=== PATIENT | male | born 1965 | race Caucasian/White ===

== ENCOUNTER 2018-08-22 06:32 | Day surgery (SDC) | payer BC ==
[~2018-08-22 06:32] MED LIST: ALPRAZolam 0.25 MG TAB PO PRN; ALPRAZolam 0.5 MG TAB PO PRN; ASPIRIN 325 MG TAB PO STA; ATORVASTATIN 80 MG TAB PO STA; NITROGLYCERIN SL TABS 0.4 MG TAB SUBLINGUAL PRN; SODIUM CHLORIDE 0.9% 1,000 ML in EMPTY BAG 1 BAG IV ONE
[2018-08-22] MEDS ORDERED: fentaNYL (PF) 50 MCG/ML 2 ML AMP ONE (07:22)
[2018-08-22] MEDS ORDERED: LIDOCAINE 1% INJ 10MG/ML (20 ML MDV) ONE (07:22)
[2018-08-22] MEDS ORDERED: IV FLUID CONTINUATION 1,000 ML IV ONE (07:37)
[2018-08-22] MEDS: MIDAZOLAM 2 MG/2 ML VIAL IVP ONE ×2 (07:47→07:52)
[2018-08-22] MEDS ORDERED: fentaNYL (PF) 50 MCG/ML 2 ML AMP IVP ONE (07:47)
[2018-08-22] MEDS ORDERED: BIVALIRUDIN BOLUS 250 MG/50 ML IV ONE (08:16)
[2018-08-22] MEDS ORDERED: BIVALIRUDIN 250 MG in SODIUM CHLORIDE 0.9% 32 ML IV ONE (08:16)
[2018-08-22] MEDS ORDERED: MIDAZOLAM 2 MG/2 ML VIAL IVP ONE (08:16)
[2018-08-22] MEDS ORDERED: CLOPIDOGREL 75 MG TAB ONE ×2 (08:18)
[2018-08-22] MEDS: NITROGLYCERIN 1000MCG/10ML SYRINGE INTRACORON ONE ×2 (08:18→08:24)
[2018-08-22] MEDS ORDERED: CLOPIDOGREL 75 MG TAB PO ONE (08:23)
[2018-08-22] MEDS ORDERED: IOPAMIDOL-370 125ML BTL INJ ONE (08:27)
[2018-08-22] MEDS ORDERED: NITROGLYCERIN SL TABS 0.4 MG TAB SUBLINGUAL PRN ×2 (08:30→08:31)
[2018-08-22] MEDS ORDERED: ZOLPIDEM 5 MG TAB PO PRN (08:31)
[2018-08-22] MEDS ORDERED: ATROPINE SULFATE 0.1 MG/ML 10ML SYRINGE IV PRN (08:31)
[2018-08-22] MEDS ORDERED: MAG HYDROX/AL HYDROX/SIMETH 30 ML CUP PO PRN (08:31)
[2018-08-22] MEDS ORDERED: RX INFO: IV CONTRAST WAS GIVEN 1 EACH MISC MISCELLANE PRN (08:31)
[2018-08-22] MEDS ORDERED: SODIUM CHLORIDE 0.9% 1,000 ML IV SCH (08:45)
--- NOTE | 2018-08-22 09:03 | PTCA ---
PERCUTANEOUSTRANS CORORONARY ANGIOGRAPHY DATE OF SERVICE: 08/22/2018 PERFORMING PHYSICIAN: Eladio Wolf MD, Congressional Representative. PROCEDURE PERFORMED: Successful stenting of the mid RCA using 3.5 x 15 mm Xience drug-eluting stent with an excellent angiographic results. INDICATION: This is a pleasant 52-year-old gentleman who sees Dr. Villalta in the office as an outpatient with known history of coronary artery disease who underwent stenting of the LAD in the past, was experiencing chest discomfort concerning for angina. He underwent heart catheterization earlier today by Dr. Villalta and was found to have severe disease involving the mid RCA with patent stent in the LAD. Because of that, stenting of the RCA was advised. APPROACH: Right common femoral artery. COMPLICATION: None. LEVEL OF SEDATION: Moderate with sedation length of 12 minutes. PROCEDURE DESCRIPTION: After diagnostic heart catheterization was performed by Dr. Villalta and after reviewing the angiogram, we decided to pursue with an intervention on the right coronary artery. Anticoagulation was initiated using Angiomax. Subsequently, I did engage the right coronary artery using JR4 guide. A run-through wire was used to wire the right coronary artery. Subsequently, I did direct stenting of the lesion using 3.5 x 15 mm Xience drug-eluting stent where the stent was positioned under fluoroscopy guidance and deployed under 18 atmospheres for 20 seconds. The following angiogram showed good angiographic results and the procedure was completed without any complication. POSTPROCEDURE MANAGEMENT: 1. Dual anti-platelet therapy. 2. Risk factors modifications. 3. Follow up with the patient. MMODL / IJN: [id number] /
--- NOTE | 2018-08-22 09:03 | CC ---
CARDIAC CATHETERIZATION REPORT CARDIAC CATHETERIZATION: INDICATION: Unstable angina. PROCEDURE NOTE: After obtaining informed consent, left heart catheterization, coronary angiogram are performed via the right femoral artery using standard Morgan catheters. Patient tolerated the procedure well without any obvious immediate complications. Patient was given moderate conscious sedation and total sedation time was 15 minutes. FINDINGS: HEMODYNAMICS: Left ventricular end-diastolic pressure is 10 to 12 mm. There is no significant gradient across aortic valve. LEFT VENTRICULOGRAM: Left ventriculogram is not performed. ANGIOGRAPHIC DATA: LEFT MAIN CORONARY ARTERY: Left main coronary artery is a normal-sized vessel and is free of stenosis. Divides into left anterior descending coronary artery and a small nondominant circumflex coronary artery. The previously stented segment within the LAD appears patent. RIGHT CORONARY ARTERY: A large dominant vessel, shows a focal area of 70% stenosis in the mid RCA and there is also a mild atherosclerotic plaque in the proximal part. CONCLUSION: Patent stent within the LAD, 70% stenosis involving mid RCA. PLAN: Patient will undergo angioplasty with stent placement of right coronary artery. The patient had been explained of risks, benefits and alternatives for management. He understands and is in agreement with the plans. MMODL / IJN: [id number] /
--- NOTE | 2018-08-22 09:18 | LTR ---
August 22, 2018 Re: Geovany Sims Dear Dr. Dennis: Mr. Geovany Sims underwent a heart catheterization earlier today by Dr. Villalta and was found to have severe disease involving the mid RCA. He underwent successful stenting of the RCA with good angiographic results and without any complication. Thank you for allowing us to participate in his care and please do not hesitate to call if you have any question or concern. Sincerely, MD BEA Briseno / LACI: [id number] /
[2018-08-22] MEDS: METOPROLOL TARTRATE 25 MG TAB PO SCH ×2 (12:01→20:22)
[2018-08-22] MEDS: ASPIRIN 325 MG TAB PO SCH (12:45)
[2018-08-22 14:57] VITALS: BMI 36.0
[2018-08-22] MEDS ORDERED: ATORVASTATIN 10 MG TAB PO SCH (21:00)
[2018-08-22 21:06] VITALS: RESP 18
[2018-08-23 07:28] LABS: Anion Gap 7 mmol/L; Blood Urea Nitrogen 11 mg/dL (9-20); Calcium 9.3 mg/dL (8.4-10.2); Carbon Dioxide 23 mmol/L (22-30); Chloride 109 mmol/L (98-107); Glucose 99 mg/dL (74-99); Potassium 4.5 mmol/L (3.5-5.1); Sodium 139 mmol/L (137-145)
[2018-08-23 07:37] LABS: Basophils # (A) 0.1 k/uL (0-0.2); Basophils % (A) 1 %; Eosinophils # (A) 0.2 k/uL (0-0.7); Eosinophils % (A) 2 %; HCT 49.6 % (39.0-53.0); Lymphocytes # (A) 1.1 k/uL (1.0-4.8); Lymphocytes % (A) 13 %; MCH 28.5 pg (25.0-35.0); MCHC 32.2 g/dL (31.0-37.0); MCV 88.4 fL (80.0-100.0); Mean Platelet Volume 7.2; Monocytes # (A) 0.5 k/uL (0-1.0); Monocytes % (A) 6 %; Neutrophils # (A) 6.6 k/uL (1.3-7.7); Neutrophils % (A) 78 %; Platelet Count 195 k/uL (150-450); RBC 5.61 m/uL (4.30-5.90); WBC 8.5 k/uL (3.8-10.6)
[2018-08-23] MEDS: ASPIRIN 325 MG TAB PO SCH (07:46)
[2018-08-23] MEDS: METOPROLOL TARTRATE 25 MG TAB PO SCH (07:46)
[2018-08-23] MEDS ORDERED: CLOPIDOGREL 75 MG TAB PO SCH (09:00)
[2018-08-23 12:26] VITALS: BP 119/81; PULSE 64; TEMP 97.7
--- NOTE | 2018-08-23 14:10 | DS ---
DISCHARGE SUMMARY DATE OF ADMISSION: 08/22/2018. DATE OF DISCHARGE: 08/23/2018. DIAGNOSIS: Unstable angina. PROCEDURES PERFORMED: Coronary angiography and PTCA and stenting of right coronary artery. Mr. Sims was admitted for elective cardiac cath by Dr. Villalta. Cardiac cath revealed that he had a significant lesion in the right coronary artery, about a 70% stenosis in the mid RCA. Previously stented LAD was patent. The circumflex was small and nondominant. He underwent stenting of mid RCA with a drug-eluting stent by Dr. Soliz uneventfully. Postprocedure course was uneventful. This morning, EKG and labs are good. His right groin is clean and dry with a good pulse. Patient has been ambulating in the hallways without symptoms. Patient had a 3.5 caliber 15 mm long drug-eluting stent. The patient is ambulating the cain without symptoms. Plan is discharge him home and he will see Dr. Villalta in one week. Discharge instructions regarding activity, diet and medications were given. MMODL / IJN: [id number] /
[2018-08-23] MEDS ORDERED: ATORVASTATIN 40 MG TAB PO SCH (21:00)
== END 2018-08-23 12:19 | disposition home or self-care (01) ==
LOC: CATHCVL 06:32 → 3SCARD 08:33 → CATHCVL 08-23 12:19
PROVIDERS: ATTEND Internal Medicine Cardiovascular Disease
DX: I25.110 Atherosclerotic heart disease of native coronary artery with unstable angina pectoris (principal); I10 Essential (primary) hypertension; Z72.0 Tobacco use; Z95.5 Presence of coronary angioplasty implant and graft; E78.2 Mixed hyperlipidemia; E78.00 Pure hypercholesterolemia, unspecified; Z79.82 Long term (current) use of aspirin; Z79.899 Other long term (current) drug therapy
CPT/HCPCS: 93458; 80048; 85025; C9600; C1760; C1887; C1769 ×2; C1894; C1874; J2250; J3010; J0583; Q9967

== ENCOUNTER → 2024-08-22 | Outpatient (CLI) | payer BC ==
[2024-08-22 14:53] LABS: ALT 21 U/L (10-49); AST 21 U/L (14-35); Chol/HDL Ratio 3.01 Ratio; LDL Cholesterol,Calculated 61.3 mg/dL (0.0-131.0); VLDL Calculation 15.48 mg/dL (5.00-40.00)
== END | disposition home or self-care (01) ==
LOC: LABWHC1 08:02
PROVIDERS: ATTEND Internal Medicine Cardiovascular Disease
DX: E78.2 Mixed hyperlipidemia (principal)
CPT/HCPCS: 36415; 80061; 84450; 84460

== ENCOUNTER → 2024-11-26 | Outpatient (CLI) | payer BC ==
--- NOTE | 2024-11-26 13:07 | XR ---
EXAMINATION TYPE: XR KUB DATE OF EXAM: 11/26/2024 12:46 PM COMPARISON: None. CLINICAL INDICATION: Male, 59 years old with history of N20.0 CALCULUS OF KIDNEY, TECHNIQUE: Single view of the abdomen. FINDINGS: Right renal calculi: None Visualized. Right ureteral calculi: None Visualized. Left renal calculi: None Visualized. Left ureteral calculi: None Visualized. Pelvic calcifications: None Visualized. Bowel gas pattern is unremarkable. No free air. No mass effects. IMPRESSION: 1. [facility], , 11/26/2024 1:04 PM
== END | disposition home or self-care (01) ==
LOC: RADXRMAIN 12:19
PROVIDERS: ATTEND Urology
DX: N20.0 Calculus of kidney (principal)
CPT/HCPCS: 74018

== ENCOUNTER → 2024-11-27 | Day surgery (SDC) | payer BC ==
[2024-11-26 15:06] VITALS: BMI 35.9
--- NOTE | 2024-11-26 21:49 | P.GSHP ---
History of Present Illness H&P Date: 11/26/24 Chief Complaint: Right renal colic The patient is a 59-year-old white male with no prior history of urolithiasis. He is recently experienced acute onset of right flank pain radiating to the right lower quadrant, associated with gross hematuria, nausea, and vomiting. CT scan shows mild right hydronephrosis due to a 5 mm right proximal ureteral calculus. The calculus is not visible on a plain radiograph. The patient was offered the options of medical expulsion therapy versus ureteroscopic removal of the calculus. He has chosen to undergo the latter and comes for this reason. - Cardiovascular Cardiovascular: Reports high blood pressure - Gastrointestinal Gastrointestinal: Reports nausea, Reports vomiting - Genitourinary (Male) Genitourinary: Reports flank pain, Reports hematuria, Reports kidney stones, Denies dysuria Past Medical History Past Medical History: Coronary Artery Disease (CAD), Hypertension, Myocardial Infarction (MA), Skin Disorder Additional Past Medical History / Comment(s): heart failure, question "heart infection " 23 years ago; psoriasis; kidney stones Last Myocardial Infarction Date:: 2009 History of Any Multi-Drug Resistant Organisms: None Reported Past Surgical History: Heart Catheterization With Stent, Hernia Repair Additional Past Surgical History / Comment(s): Tendon on thumb, front teeth surgically removed Past Anesthesia/Blood Transfusion Reactions: Postoperative Nausea & Vomiting (PONV) Additional Past Anesthesia/Blood Transfusion Reaction / Comment(s): Requests Zofran Date of Last Stent Placement:: 2016 Smoking Status: Former smoker - Past Family History Father History Unknown: Yes Additional Family Medical History / Comment(s): unknow patient adopted Medications and Allergies Home Medications Medication Instructions Recorded Confirmed Type Aspirin 325 mg PO HS 08/21/18 11/26/24 History Metoprolol Tartrate 25 mg PO HS 08/21/18 11/26/24 History Nitroglycerin Sl Tabs [Nitrostat] 0.4 mg SUBLINGUAL Q5M PRN 08/21/18 11/26/24 History Atorvastatin [Lipitor] 80 mg PO HS 11/26/24 11/26/24 History Meclizine [Antivert] 12.5 mg PO HS 11/26/24 11/26/24 History Risankizumab-Rzaa [Skyrizi Pen] 150 mg INJ DIRECTED 11/26/24 11/26/24 History Allergies Allergy/AdvReac Type Severity Reaction Status Date / Time No Known Allergies Allergy Verified 11/26/24 14:57 Surgical - Exam - General well developed, well nourished, no distress - Respiratory normal respiratory effort - Abdomen Soft, no mass, no distention. Mild right-sided tenderness, no guarding or rebound. - Genitourinary normal penis with no external lesions, testicles non-tender - Psychiatric oriented to time, oriented to person, oriented to place, speech is normal, memory intact Results - Imaging CT scan - abdomen: report reviewed Assessment and Plan (1) Calculus of ureter Status: Acute Code(s): N20.1 - CALCULUS OF URETER SNOMED Code(s): 90069089 Plan: Cystoscopy, right retrograde pyelogram, right ureteroscopy with Holmium laser lithotripsy and stone basketing, right ureteral stent insertion. The procedure has been reviewed in detail with the patient. He has been made aware of potential risks, which include anesthesia, bleeding, infection, inability to remove the calculus, and ureteral injury. He is aware of the need for a stent, and the fact that he may require a secondary procedure.
[~2024-11-27] MED LIST changes: -ALPRAZolam 0.25 MG TAB PO PRN; -ALPRAZolam 0.5 MG TAB PO PRN; -ASPIRIN 325 MG TAB PO STA; -ATORVASTATIN 80 MG TAB PO STA; +LIDOCAINE 1% INJ 10MG/ML (20 ML MDV) ONE; +MIDAZOLAM 2 MG/2 ML VIAL ONE; -NITROGLYCERIN SL TABS 0.4 MG TAB SUBLINGUAL PRN; +PROPOFOL 10 MG/ML 20 ML VIAL IV ONE; -SODIUM CHLORIDE 0.9% 1,000 ML in EMPTY BAG 1 BAG IV ONE; +SUCCINYLCHOLINE CHLORIDE 200 MG/10 ML VIAL IV ONE; +fentaNYL (PF) 50 MCG/ML 2 ML AMP ONE
[2024-11-27] MEDS: IV FLUID CONTINUATION 1,000 ML IV ONE (14:25)
[2024-11-27 14:32] VITALS: TEMP 97.1
[2024-11-27] MEDS: LACTATED RINGERS 1,000 ML IV SCH (14:51)
[2024-11-27] MEDS: ONDANSETRON 4 MG/2 ML VIAL IVP STA (14:52)
[2024-11-27] MEDS: DEXAMETHASONE SOD PHOSPHATE 4 MG/ML 1 ML VIAL IVP STA (14:57)
[2024-11-27] MEDS: IOPAMIDOL-370 100ML BTL MISCELLANE ONE (16:30)
--- NOTE | 2024-11-27 17:37 | P.OP ---
Date of Procedure: 11/27/24 Preoperative Diagnosis: Right ureteral calculus Postoperative Diagnosis: Same Procedure(s) Performed: Cystoscopy, right retrograde pyelogram, right ureteroscopy with Holmium laser lithotripsy and stone basketing, right ureteral stent insertion Anesthesia: INEZA Surgeon: Kevin Cobb Estimated Blood Loss (ml): 5 IV fluids (ml): 500 Condition: stable Disposition: PACU Indications for Procedure: The patient is a 59-year-old white male with no prior history of urolithiasis. He is recently experienced acute onset of right flank pain radiating to the right lower quadrant, associated with gross hematuria, nausea, and vomiting. CT scan shows mild right hydronephrosis due to a 5 mm right proximal ureteral calculus. The calculus is not visible on a plain radiograph. The patient was offered the options of medical expulsion therapy versus ureteroscopic removal of the calculus. He has chosen to undergo the latter and comes for this reason. Operative Findings: Right proximal ureteral calculus, successfully fragmented and partially removed via stone basketing. Description of Procedure: The patient was taken to the operating room and placed in the dorsolithotomy position, with legs supported in Dusty stirrups. The external genitalia was prepped and draped sterilely. The 30 lens was used to introduce the 21-Ethiopian Lincoln cystoscopic sheath through the urethra and into the bladder under direct vision. The prostatic urethra showed evidence of mild lateral lobe enlargement. The bladder was examined in its entirety. Both ureteral orifices were normal anatomic location and configuration. No tumors or foreign bodies were seen. Using an 8 Ethiopian cone-tip catheter, a right retrograde pyelogram was performed. The distal two thirds of the ureter were normal in course and caliber. Within the proximal ureter was an irregularity, and the ureter proximal to this was noted to be dilated. Although a calculus was not seen, it was presumed that there was an obstructing calculus in this area. A 0.038 inch Glidewire was passed through the cystoscope. The ureteral orifice was cannulated, and the Glidewire was advanced up to the calculus, where resistance was met. With some manipulation, it was possible to advance the tip of the Glidewire beyond the calculus and up to the right renal pelvis, where it coiled. The cystoscope was removed, and an 11/13-Ethiopian ureteral access catheter was passed over the wire, up to the mid ureter. The Lincoln Petenkora flexible ureteroscope was then passed through the ureteral access catheter sheath and up to the area where the calculus appeared to have been located. A calculus was not seen in this area, but edema was noted and it was not possible to pass the ureteroscope through this area. Therefore, the Glidewire was passed through the ureteroscope and up to the renal pelvis, and the ureteroscope was slowly advanced over the wire, up to the renal pelvis. The intrarenal collecting system was noted to be markedly dilated. Each calyx was examined. A 2 mm calculus was seen within a midpole calyx, and the 272 micron Holmium laser probe was passed through the ureteroscope. Lithotripsy was performed, fragmenting this calculus. Following thorough inspection of each of the calyces, the ureteral calculus was identified within the dilated renal pelvis. There was concern that in situ laser lithotripsy would result in the calculus moving into an area where it could no longer be located. Therefore, a 1.9 Ethiopian 0 tip nitinol basket was passed through the ureteroscope, and the calculus was grasped. With the calculus within the basket, edges of the calculus were lasered away using the holmium laser. This was continued until the calculus appeared small enough that it could be removed. Most of the fragments which broke away were dust, but 1 likely measured approximately 2 mm. The ureteroscope was withdrawn, but met resistance in the area where the calculus had been impacted, as the stone could not be brought through this narrowed segment. The stone was fragmented using the holmium laser within the basket until the basket could be removed with the largest calculus fragment, which measured 2 to 3 mm in size. Ureteroscopy was repeated, but it was difficult to pass the ureteroscope through the narrowed area, and the decision was made to terminate the procedure at this time. The Glidewire was passed through the ureteroscope, which was withdrawn along with the ureteral access catheter sheath. The Glidewire was then backloaded into the cystoscope, which was passed into the bladder. A 26 cm, 6 Ethiopian double-J ureteral stent was placed over the wire. Proper stent positioning was verified fluoroscopically and endoscopically. The bladder was emptied and the cystoscope removed. The patient tolerated the procedure well and was taken to the recovery room in stable condition. [employer] Report: Procedure Acuity: Urgent Stone Size and Location: 5 mm, right proximal ureter Ureteral Dilation: No Ureteral Access Sheath Used: Yes Stone Sent for Analysis: Yes All Stones/Fragments Were Removed with a Basket: No Complications: No Preoperative Antibiotics Given: Yes Stent Placed: Yes If Stent Placed, Was String Left Attached: No If Stent Placed, When is it to be Removed: 2-3 weeks Discharge Medications: Toradol, tamsulosin
--- NOTE | 2024-11-27 17:40 | FL ---
EXAMINATION TYPE: FL urography retrograde Intraoperative/procedural fluoroscopic services were provid ed. CLINICAL INDICATION:Male, 59 years old with history of CYSTO LITHO; , [facility] FINDINGS: Fluoroscopic images for right-sided cystoscopy with lithotripsy and stent placement. No radiographic evidence for complication. Total fluoroscopy time is 47 seconds. DAP: 8.6057 Gycm2 Please see the operative/procedural note for further details. [facility], , 11/27/2024 5:37 PM
[2024-11-27] MEDS: KETOROLAC 15 MG/ML 1 ML VIAL IVP ONE (18:30)
[2024-11-27 19:09] VITALS: RESP 16
[2024-11-27 19:12] VITALS: BP 129/70; PULSE 79
== END | disposition home or self-care (01) ==
LOC: OR 13:51
PROVIDERS: ATTEND Urology
DX: N13.2 Hydronephrosis with renal and ureteral calculous obstruction (principal); I11.0 Hypertensive heart disease with heart failure; I50.9 Heart failure, unspecified; I25.2 Old myocardial infarction; I25.10 Atherosclerotic heart disease of native coronary artery without angina pectoris; L40.9 Psoriasis, unspecified; Z87.891 Personal history of nicotine dependence; Z98.890 Other specified postprocedural states; Z79.899 Other long term (current) drug therapy
CPT/HCPCS: 82365; 74420; 52356; C1758 ×3; C1769; J2250; J0330; J1100; J0690; J2405; J2003; J3010; J1885; J2704; Q9967